=== PATIENT | male | born 1950 | race Caucasian/White ===

== ENCOUNTER 2016-09-08 | Emergency (ER) | payer BLACK LUNG, MEDICARE ==
[~2016-09-08] MED LIST: ASPIRIN81 MG PO; COLACE 100MG C100 MG PO; DALIRESP500 MCG PO; FLOMAX 0.4 MG0.4 MG PO; FUROSEMIDE20 MG PO; K-DUR TAB 10 M10 MEQ PO; LOPRESSOR50 MG PO; LORTAB 7.5-3251 EACH PO; MIRALAX PACK 171 PKT PO; NITROSTAT 0.40.4 MG SL; NORCO 7.5-3251 EACH PO; PLAVIX 75 MG TA75 MG PO; PREDNISONE 10 M10 MG PO; SINGULAIR10 MG PO; SPIRIVA18 MCG INH; SYMBICORT 160-1 INHA INH; TESSALON PERLE100 MG PO; VENTOLIN HFA 66.7 GM INH; VENTOLIN/PROVE0.5 ML INH
[2016-09-08 21:49] LABS: HEMOGLOBIN 11.5 gm/dl (14.0-17.5); RED BLOOD COUNT 4.12 M/UL (4.20-5.50); WHITE BLOOD COUNT 9.1 K/UL (4.5-11.0)
[2016-09-08 22:14] LABS: BUN/CREATININE RATIO 35 (0-10)
== END 2016-09-09 01:15 | disposition home or self-care (01) ==
PROVIDERS: Emergency Medicine
DX: J18.9 Pneumonia, unspecified organism (principal); J44.9 Chronic obstructive pulmonary disease, unspecified
CPT/HCPCS: 36600; 71010; 71250; 80053; 82550; 82553; 82803; 83874; 83880; 84484; 85025; 93005; 94640; 94664; 96361; 96374; 96375; 99285; J1885; J2930; Q9963